=== PATIENT | female | born 1965 | race Caucasian/White ===

== ENCOUNTER → 2017-11-15 | Outpatient (REF) | payer OTHER ==
[~2017-11-15] MED LIST: ALBUTERAL INHALER; AMOX-559 PO; AMOX875T60 PO; ASPI-715 PO; CELE-1 PO; CIT20 PO; FERR-1 PO; FLU10 PO; KET10 PO; LOR5 PO; MECL25TA9 PO; MOMR ENA; MULT-865 PO; MULT1CAP59 PO; ONDA4TAB PO; PER PO; PRE20 PO; PROM-110 PO
[2017-11-15 20:43] LABS: PLATELET COUNT, AUTOMATED 291 K/uL (150-450)
== END ==
PROVIDERS: ATTEND Nurse Practitioner Family
DX: R07.89 Other chest pain (principal)
CPT/HCPCS: 82040; 82247; 82310; 82374; 82435; 82565; 82947; 84075; 84132; 84155; 84295; 84450; 84460; 84520; 85025; 85379